=== PATIENT | female | born 1980 | race Hispanic/Latino ===

== ENCOUNTER 2021-02-14 17:57 | Emergency (ER) | payer BC ==
[2021-02-14] MEDS ORDERED: Acetaminophen 500 MG TAB ONE (19:20)
== END 2021-02-14 19:51 | disposition home or self-care (01) ==
LOC: CSHERS 17:57
DX: O99.891 Other specified diseases and conditions complicating pregnancy (principal); R10.10 Upper abdominal pain, unspecified; Z3A.20 20 weeks gestation of pregnancy
CPT/HCPCS: 99283

== ENCOUNTER 2021-06-27 19:55 | Day surgery (SDC) | payer OTHER ==
[2021-06-27 20:24] VITALS: BMI 40.6
[2021-06-27] MEDS ORDERED: Lactated Ringer's 1,000 ML IV SCH (21:45)
== END 2021-06-28 01:34 | disposition home or self-care (01) ==
LOC: CSHLD/OP 19:55
PROVIDERS: ATTEND Obstetrics & Gynecology
DX: O47.1 False labor at or after 37 completed weeks of gestation (principal); O32.1XX0 Maternal care for breech presentation, not applicable or unspecified; O36.63X0 Maternal care for excessive fetal growth, third trimester, not applicable or unspecified; O09.523 Supervision of elderly multigravida, third trimester; O99.213 Obesity complicating pregnancy, third trimester; Z3A.38 38 weeks gestation of pregnancy; Z79.82 Long term (current) use of aspirin
CPT/HCPCS: 96360; 96361; 99283